=== PATIENT | female | born 1990 | race Hispanic/Latino ===

== ENCOUNTER 2021-09-20 14:28 | Emergency (ER) | payer OTHER ==
[~2021-09-20] VITALS: Ht 157.5 cm; Wt 76.2 kg
[2021-09-20 14:32] VITALS: BP 137/82
[2021-09-20] MEDS ORDERED: ONDANSETRON 4MG INJ IVP ONE (15:00)
[2021-09-20] MEDS ORDERED: FAMOTIDINE 20MG VIAL IV ONE (15:00)
[2021-09-20] MEDS ORDERED: MAG/ALUM/SIMETH 30 ML UDCUP PO ONE (15:00)
[2021-09-20 15:03] LABS: BASOPHILS % (AUTO) 0.3 % (0.0-5.0); EOSINOPHILS % (AUTO) 0.5 % (0.0-8.0); HEMATOCRIT 39.8 % (36-48); LYMPHOCYTES % (AUTO) 21.5 % (21.0-51.0); MEAN CORPUSCULAR HEMOGLOBIN 27.9 pg (27.0-33.0); MEAN CORPUSCULAR HGB CONC 33.4 g/dL (32.0-36.0); MEAN CORPUSCULAR VOLUME 83.6 fL (79-99); MONOCYTES % (AUTO) 6.8 % (3.0-13.0); NEUTROPHILS % (AUTO) 70.5 % (40.0-77.0); PLATELET COUNT (AUTO) 272 K/uL (130-400); RED BLOOD CELL COUNT(AUTO) 4.76 MIL/uL (4.00-5.50); RED CELL DISTRIBUTION WIDTH 12.1 % (11.0-15.5)
[2021-09-20] MEDS ORDERED: LIDOCAINE HCL 2% VISCOUS 15 ML UDCUP ONE (15:07)
[2021-09-20] MEDS ORDERED: DICYCLOMINE HCL 10 MG/5 ML ML PO ONE (15:08)
[2021-09-20 15:12] LABS: CREATININE 0.8 mg/dL (0.5-1.5); POTASSIUM 3.3 mmol/L (3.5-5.1)
[2021-09-20 15:23] LABS: ALBUMIN 4.1 g/dL (3.5-5.0); BILIRUBIN,TOTAL 0.5 mg/dL (0.2-1.0); TOTAL PROTEIN, SERUM 8.5 g/dL (6.0-8.3)
[2021-09-20 15:26] LABS: APPEARANCE,URINE Clear (CLEAR); BILIRUBIN,URINE Negative (NEGATIVE); COLOR,URINE Yellow (YELLOW); GLUCOSE, URINE (UA) Negative (NEGATIVE); KETONES,URINE Negative (NEGATIVE); LEUKOCYTE ESTERASE ,URINE Negative (NEGATIVE); NITRATE,URINE Negative (NEGATIVE); OCCULT BLOOD,URINE Negative (NEGATIVE); PROTEIN,URINE Negative (NEGATIVE)
[2021-09-20] MEDS ORDERED: DICY20TA2 PO (15:49)
[2021-09-20] MEDS ORDERED: FAMO-136 PO (15:49)
[2021-09-20] MEDS ORDERED: ONDA4TAB10 PO (15:49)
[2021-09-20 16:05] LABS: HCG,QUAL RESULT NEGATIVE (NEGATIVE)
== END 2021-09-20 16:10 | disposition home or self-care (01) ==
LOC: EDH 14:28
DX: K80.20 Calculus of gallbladder without cholecystitis without obstruction (principal); R10.13 Epigastric pain; Z79.899 Other long term (current) drug therapy
CPT/HCPCS: 36415; 76705; 80053; 81003; 81025; 83690; 84484; 85025; 96374; 96375; 99284; J2405; J3490